=== PATIENT | female | born 1970 | race Caucasian/White ===

== ENCOUNTER 2016-06-28 21:22 | Emergency (ER) | payer BC ==
[~2016-06-28] VITALS: Ht 172.7 cm; Wt 69.1 kg
[~2016-06-28 21:22] MED LIST: AMOXICILLIN; AUGMENTIN875 MG PO; BIRTH CONTROL PILLS; ENDOCET 5-3251 EACH PO; Motrin PO; SYNTHROID150 MCG PO
[2016-06-28] MEDS ORDERED: TOPIRAMATE100 MG PO (22:51)
[2016-06-28] MEDS ORDERED: MULTIVITAMIN1 EAC2 PO (22:52)
[2016-06-28] MEDS ORDERED: EXCEDRIN MIGRA1 EAC3 PO (22:53)
[2016-06-29] MEDS ORDERED: TRAMADOL HCL50 MG PO (02:00)
[2016-06-29] MEDS ORDERED: FLEXERIL5 MG PO (02:00)
[2016-06-29] MEDS ORDERED: FLONASE16 G1 BOTH NARES (02:00)
[2016-06-29 02:15] VITALS: BP 101/54
== END 2016-06-29 02:16 | disposition home or self-care (01) ==
LOC: EME 21:22
DX: R51 Headache (principal); Z87.442 Personal history of urinary calculi
CPT/HCPCS: 99281; 99284; J1170; J1885; J2765; J2930; J7030

== ENCOUNTER 2016-08-17 04:01 | Emergency (ER) | payer BC ==
[~2016-08-17] VITALS: Ht 172.7 cm; Wt 69.1 kg
[~2016-08-17 04:01] MED LIST changes: +EXCEDRIN MIGRA1 EAC3 PO; +FLEXERIL5 MG PO; +FLONASE16 G1 BOTH NARES; +MULTIVITAMIN1 EAC2 PO; +TOPIRAMATE100 MG PO; +TRAMADOL HCL50 MG PO
[2016-08-17 05:56] LABS: INFLUENZA A VIRAL ANTIGEN POSITIVE; INFLUENZA B VIRAL ANTIGEN NEGATIVE
[2016-08-17] MEDS ORDERED: TAMIFLU75 MG PO (06:00)
[2016-08-17 06:20] VITALS: BP 121/75
== END 2016-08-17 06:22 | disposition home or self-care (01) ==
LOC: EME 04:01
PROVIDERS: Emergency Medicine
DX: J10.1 Influenza due to other identified influenza virus with other respiratory manifestations (principal); R51 Headache; G43.909 Migraine, unspecified, not intractable, without status migrainosus; Z87.442 Personal history of urinary calculi
CPT/HCPCS: 71020; 87502; 99281; 99284; J0780; J1100; J1200; J1885; J7030